=== PATIENT | female | born 1930 | race Caucasian/White ===

== ENCOUNTER 2016-10-19 | Emergency (ER) | payer MEDICARE, OTHER ==
[~2016-10-19] MED LIST: ADULT LOW DOSE81 MG PO; AMARYL 2MG TABLE2 MG PO; BUSPAR 5MG TABLE5 MG PO; CYMBALTA 30 MG30 MG PO; FOLIC ACID 1 MG1 MG PO; HUMALOG100 UNIT/1 SQ; HYDROCODON-ACE1 EAC2 PO; LANTUS100 UNIT/1 SQ; LASIX40 MG PO; LEVAQUIN500 MG PO; LIPITOR TAB 2020 MG PO; LOTENSIN TAB 1010 MG PO; LOVAZA 1 GM1 G PO; LYRICA100 MG PO; MELATONIN3 M1 PO; METHOTREXATE T2.5 MG PO; NITROSTAT0.4 MG SL; NORVASC 5 MG TAB5 MG PO; OMEPRAZOLE20 M1 PO; PLAQUENIL 200200 MG PO; PLAVIX 75 MG TA75 MG PO; POTASSIUM CHLO10 ME1 PO; PROAIR HFA8.5 GM INH; SECTRAL CAP 20200 MG PO; ZANAFLEX4 MG PO
[2017-05-19] MEDS ORDERED: IPRAT-ALBUT 0.5-3 ML INH (10:47)
[2017-05-19] MEDS ORDERED: EYE DROPS15 M1 OU (10:47)
[2017-05-19] MEDS ORDERED: ENBREL50 MG/1 ML SQ (10:48)
== END 2016-10-19 18:12 | disposition left against medical advice (07) ==
DX: Z53.21 Procedure and treatment not carried out due to patient leaving prior to being seen by health care provider (principal)

== ENCOUNTER → 2020-10-28 | Outpatient (CLI) | payer MEDICARE, BC ==
[~2020-10-28] MED LIST changes: +ARICEPT5 MG PO; +CEFUROXIME250 MG PO; +CLARITIN 10MG T10 MG PO; +COLACE 100MG C100 MG PO; +COZAAR 50MG TAB50 MG PO; -CYMBALTA 30 MG30 MG PO; +CYMBALTA60 MG PO; +ELIQUIS2.5 MG PO; +ENBREL50 MG/1 ML SQ; +EYE DROPS15 M1 OU; +FERROUS GLUCON324 M1 PO; +HUMIRA40 MG/0.4 SQ; +HYDRALAZINE HCL50 MG PO; +HYDROCHLOROTH12.5 M1 PO; +IPRAT-ALBUT 0.5-3 ML INH; +LEVOFLOXACIN500 MG PO; +LIPITOR20 MG PO; -LYRICA100 MG PO; +LYRICA200 MG PO; +MAGIC MOUTHWASH PO; +MEGACE 400400 MG/10 PO; +MIRALAX17 GM PO; +MOVANTIK25 MG PO; +NORVASC10 MG PO; +ORENCIA125 MG/1 M SQ; +PANTOPRAZOLE SO40 MG PO; +PREDNISONE 5 MG5 MG PO; +PROTONIX 20 MG20 MG PO; +ZESTRIL40 MG PO
== END ==
LOC: LBRF 18:26
DX: N39.0 Urinary tract infection, site not specified (principal)
CPT/HCPCS: 81001; 87077; 87086; 87186

== ENCOUNTER 2021-03-21 16:06 | Emergency (ER) | payer MEDICARE, BC ==
[~2021-03-21 16:06] MED LIST changes: -ARICEPT5 MG PO; -BUSPAR 5MG TABLE5 MG PO; -CYMBALTA60 MG PO; -NITROSTAT0.4 MG SL
[2021-03-21 18:19] LABS: HEMOGLOBIN 13.4 gm/dl (12.3-15.3); RED BLOOD COUNT 4.59 M/UL (4.00-5.10); WHITE BLOOD COUNT 7.4 K/UL (4.5-11.0)
[2021-03-21] MEDS ORDERED: CEFUROXIME500 MG PO (20:44)
== END 2021-03-21 23:50 | disposition home or self-care (01) ==
LOC: ER1 16:06
PROVIDERS: Preventive Medicine Occupational Medicine
DX: Z53.8 Procedure and treatment not carried out for other reasons (principal)
CPT/HCPCS: 36600; 51701; 71045; 80053; 81001; 82550; 82553; 82803; 83605; 83690; 83874; 84484; 85025; 85652; 86140; 87040; 87086; 96374; 96375; 99284; J0696; J2405; J7030; U0002

== ENCOUNTER 2021-03-23 19:09 | Inpatient (IN) | payer MEDICARE, BC ==
[~2021-03-23] VITALS: Ht 152.4 cm; Wt 81.6 kg
[~2021-03-23 19:09] MED LIST changes: +CEFUROXIME500 MG PO
[2021-03-23 19:52] LABS: HEMOGLOBIN 12.8 gm/dl (12.3-15.3); RED BLOOD COUNT 4.37 M/UL (4.00-5.10)
[2021-03-23 19:54] LABS: WHITE BLOOD COUNT 9.9 K/UL (4.5-11.0)
[2021-03-23 20:11] LABS: BUN/CREATININE RATIO 18 (0-10)
[2021-03-24 05:31] LABS: HEMOGLOBIN 11.9 gm/dl (12.3-15.3); RED BLOOD COUNT 4.03 M/UL (4.00-5.10); WHITE BLOOD COUNT 9.9 K/UL (4.5-11.0)
[2021-03-24] MEDS ORDERED: HYDROCODON-ACE1 EAC2 PO (11:40)
[2021-03-24] MEDS ORDERED: DURAGESIC1 EAC4 TD (11:40)
[2021-03-24] MEDS ORDERED: MYCOSTATIN POWD15 GM TOP (11:41)
[2021-03-24] MEDS ORDERED: CYMBALTA 30 MG30 MG PO (19:46)
[2021-03-24] MEDS ORDERED: BUSPIRONE HCL15 MG PO (19:52)
[2021-03-25 07:18] LABS: HEMOGLOBIN 13.1 gm/dl (12.3-15.3); RED BLOOD COUNT 4.43 M/UL (4.00-5.10); WHITE BLOOD COUNT 11.6 K/UL (4.5-11.0)
[2021-03-25 07:49] LABS: BUN/CREATININE RATIO 23 (0-10)
[2021-03-26 04:28] LABS: HEMOGLOBIN 12.6 gm/dl (12.3-15.3); RED BLOOD COUNT 4.36 M/UL (4.00-5.10); WHITE BLOOD COUNT 10.4 K/UL (4.5-11.0)
== END 2021-03-28 15:13 | disposition home or self-care (01) | DRG 689 ==
LOC: ER1 19:09 → CDU 21:46 → M/S 03-24 22:10
PROVIDERS: Internal Medicine; Physician Assistant; ADMIT Internal Medicine
DX: N30.00 Acute cystitis without hematuria (principal); G93.41 Metabolic encephalopathy; J96.10 Chronic respiratory failure, unspecified whether with hypoxia or hypercapnia; E11.22 Type 2 diabetes mellitus with diabetic chronic kidney disease; Z20.822 Contact with and (suspected) exposure to COVID-19; I12.9 Hypertensive chronic kidney disease with stage 1 through stage 4 chronic kidney disease, or unspecified chronic kidney disease; N18.30 Chronic kidney disease, stage 3 unspecified; M06.9 Rheumatoid arthritis, unspecified; Z51.5 Encounter for palliative care; R62.7 Adult failure to thrive; G47.33 Obstructive sleep apnea (adult) (pediatric); E87.6 Hypokalemia; E11.649 Type 2 diabetes mellitus with hypoglycemia without coma; Z79.82 Long term (current) use of aspirin; Z87.01 Personal history of pneumonia (recurrent); Z86.73 Personal history of transient ischemic attack (TIA), and cerebral infarction without residual deficits; Z88.0 Allergy status to penicillin; Z88.8 Allergy status to other drugs, medicaments and biological substances; Z79.899 Other long term (current) drug therapy; Z90.710 Acquired absence of both cervix and uterus; Z74.01 Bed confinement status; Z68.32 Body mass index [BMI] 32.0-32.9, adult
CPT/HCPCS: 36415; 36600; 51701; 51702; 70450; 71045; 80048; 80053; 81001; 82550; 82553; 82803; 82962; 83605; 83690; 83874; 84132; 84484; 85025; 85652; 86140; 87040; 87086; 92526; 92610; 93005; 96374; 96375; 99284; C9113; J0696; J1644; J2185; J2405; J3480; J7030; U0002

== ENCOUNTER 2021-04-08 14:09 | Inpatient (IN) | payer MEDICARE, BC ==
[~2021-04-08] VITALS: Ht 152.4 cm; Wt 81.6 kg
[~2021-04-08 14:09] MED LIST changes: +BUSPIRONE HCL15 MG PO; +CYMBALTA 30 MG30 MG PO; +DURAGESIC1 EAC4 TD; +MYCOSTATIN POWD15 GM TOP
[2021-04-08 16:35] LABS: HEMOGLOBIN 14.3 gm/dl (12.3-15.3); RED BLOOD COUNT 4.63 M/UL (4.00-5.10); WHITE BLOOD COUNT 17.4 K/UL (4.5-11.0)
[2021-04-08] MEDS ORDERED: LANTUS SOL100 UNIT/1 SQ (17:52)
[2021-04-08] MEDS ORDERED: PROTONIX 40 MG40 M1 PO (17:53)
[2021-04-08] MEDS ORDERED: IRON PO (17:54)
[2021-04-08] MEDS ORDERED: VITAMIN B-125000 MC1 PO (17:57)
[2021-04-08] MEDS ORDERED: NITROSTAT0.4 MG SL (19:55)
[2021-04-08] MEDS ORDERED: ARICEPT5 MG PO (21:30)
[2021-04-09 03:37] LABS: HEMOGLOBIN 13.2 gm/dl (12.3-15.3); RED BLOOD COUNT 4.28 M/UL (4.00-5.10); WHITE BLOOD COUNT 15.7 K/UL (4.5-11.0)
[2021-04-10 07:14] LABS: HEMOGLOBIN 13.9 gm/dl (12.3-15.3); RED BLOOD COUNT 4.44 M/UL (4.00-5.10); WHITE BLOOD COUNT 13.6 K/UL (4.5-11.0)
--- NOTE | 2021-04-10 17:43 | NUR ---
PATIENT'S FAMILY NOTIFIED NURSE THAT THEY WISH TO DISCONTINUE PATIENT'S SUPPLEMENTAL OXYGEN. DISCUSSED PROCESS, AND RISKS OF REMOVING OXYGEN FROM PATIENT. MD AWARE. WILL REMOVE OXYGEN PER FAMILY WISHES.
--- NOTE | 2021-04-11 18:14 | NUR ---
REPORT CALLED TO [facility] IN [place], [place]. PATIENT READY FOR TRANSPORT. AWAITING EMS.
== END 2021-04-11 19:40 | disposition hospice, inpatient (51) | DRG 682 ==
LOC: ER1 14:09 → CDU 16:45 → M/S 16:45
PROVIDERS: Physician Assistant; Preventive Medicine Occupational Medicine; ADMIT Internal Medicine
DX: N17.9 Acute kidney failure, unspecified (principal); G93.41 Metabolic encephalopathy; J96.21 Acute and chronic respiratory failure with hypoxia; N39.0 Urinary tract infection, site not specified; E87.0 Hyperosmolality and hypernatremia; J96.12 Chronic respiratory failure with hypercapnia; Z66 Do not resuscitate; I27.20 Pulmonary hypertension, unspecified; G47.33 Obstructive sleep apnea (adult) (pediatric); E11.22 Type 2 diabetes mellitus with diabetic chronic kidney disease; N18.30 Chronic kidney disease, stage 3 unspecified; M06.9 Rheumatoid arthritis, unspecified; E87.6 Hypokalemia; Z51.5 Encounter for palliative care; I12.9 Hypertensive chronic kidney disease with stage 1 through stage 4 chronic kidney disease, or unspecified chronic kidney disease; E86.0 Dehydration; Z20.822 Contact with and (suspected) exposure to COVID-19; Z86.73 Personal history of transient ischemic attack (TIA), and cerebral infarction without residual deficits; Z90.49 Acquired absence of other specified parts of digestive tract; Z90.710 Acquired absence of both cervix and uterus; Z98.890 Other specified postprocedural states; Z88.0 Allergy status to penicillin; Z88.5 Allergy status to narcotic agent; Z79.82 Long term (current) use of aspirin; Z79.899 Other long term (current) drug therapy; Z82.49 Family history of ischemic heart disease and other diseases of the circulatory system; Z79.4 Long term (current) use of insulin
CPT/HCPCS: 36600; 70450; 71045; 80048; 80053; 81001; 82009; 82550; 82553; 82803; 82962; 83690; 83735; 83874; 83880; 84439; 84443; 84484; 85025; 85027; 85652; 86140; 87086; 93005; 94760; 99285; J0696; J7070; U0002